=== PATIENT | male | born 1995 | race Two or more races ===

== ENCOUNTER 2025-03-07 19:27 | Emergency (ER) | payer BC, MEDICAID ==
[~2025-03-07] VITALS: Ht 175.3 cm; Wt 66.7 kg
[2025-03-07 19:35] VITALS: BP 127/83; PULSE 93; RESP 20; TEMP 98.7; O2SAT 96
--- NOTE | 2025-03-07 19:53 | ED.PDOC ---
Back pain HPI HPI Comments PT GOT HIS RIGHT INDEX AND MIDDLE FINGERS CAUGHT IN THE FAN BELT OF A CAR. AVULSION NOTED TO INDEX AND MIDDLE FINGER. NAIL IS MISSING OFF OF BOTH. DENIES NUMBNESS WEAKNESS OR ANY OTHER INJURY. Chief Complaint: Upper Extremity Time Seen by MD: 19:29 Reviewed Notes: Nurses Notes, Medications, Allergies Allergies: Coded Allergies: Hydrocortisone (Verified Allergy, Unknown, 03/07/25) Home Meds Active Scripts Ibuprofen (Ibuprofen) 800 Mg Tab, 800 MG PO Q8HP PRN for 7 Days, #21 TAB Prov:SIOMARACARSON TERRAZAS 03/07/25 Amoxicillin & Pot Clavulanate (AUGMENTIN TABLET) 875 Mg Tb, 875 MG PO BID for 10 Days, #20 TAB Prov:CARSON STRINGER 03/07/25 Information Source: Patient Mode of Arrival: Ambulatory Past Medical History PAST MEDICAL HISTORY: Denies Surgical History: Denies all surgeries Family History Family History: Unknown Social History Smoker: Non-Smoker Alcohol: Denies ETOH Use Drugs: Denies Drug Use Constitutional: denies: chills, diaphoresis, fatigue, fever, malaise, sweats, weakness, others EENTM: denies: blurred vision, double vision, ear bleeding, ear discharge, ear drainage, ear pain, ear ringing, eye pain, eye redness, hearing loss, mouth pain, mouth swelling, nasal discharge, nose bleeding, nose congestion, nose pain, photophobia, tearing, throat pain, throat swelling, voice changes, others Respiratory: denies: cough, hemoptysis, orthopnea, SOB at rest, shortness of breath, SOB with excertion, stridor, wheezing, others Cardiovascular: denies: chest pain, dizzy spells, diaphoresis, Dyspnea on exertion, edema, irregular heart beat, left arm pain, lightheadedness, palpitations, PND, syncope, others Gastrointestinal: denies: abdomen distended, abdominal pain, blood streaked bowels, constipated, diarrhea, dysphagia, difficulty swallowing, hematemesis, melena, nausea, poor appetite, poor fluid intake, rectal bleeding, rectal pain, vomiting, others Genitourinary: denies: burning, dysuria, flank pain, frequency, hematuria, incontinence, penile discharge, penile sore, pain, testicle pain, testicle swelling, urgency, others Neurological: denies: dizziness, fainting, headache, left sided numbness, left sided weakness, numbness, paresthesia, pre-existing deficit, right sided numbness, right sided weakness, seizure, speech problems, tingling, tremors, weakness, others Musculoskeletal: denies: back pain, gout, joint pain, joint swelling, muscle pain, muscle stiffness, neck pain, others Integumetry: reports: laceration (THIRD FINGER DISTAL ASPECT AVULSION WITH MISSING NAIL BLEEDING CONTROLLED RIGHT 4TH DIGIT AVULSION ON LATERAL ASPECT DISTAL BLEEDING CONTROLLED); denies: bruises, change in color, change in hair/nails, dryness, lesions, lumps, rash, wounds, others Allergic/Immunocompromised: denies: Difficulty Healing, Frequent Infections, Hives, Itching, others Hematologic/Lymphatic: denies: anemia, blood clots, easy bleeding, easy bruising, swollen glands, others Endocrine: denies: excessive hunger, excessive sweating, excessive thirst, excessive urination, flushing, intolerance to cold, intolerance to heat, unexplained weight gain, unexplained weight loss, others Psychiatric: denies: anxiety, bipolar disorder, depression, hopeless, panic disorder, schizophrenia, sleepless, suicidal, others Physical Exam General Appearance: No Apparent Distress, Normal HEENT: Pharynx Normal Neck: Full Range of Motion, Non-Tender Respiratory: Lungs Clear, No Respiratory Distress, Normal Breath Sounds Cardiovascular: No Murmur, Normal Peripheral Pulses, Regular Rate/Rhythm Breast Exam: Deferred Gastrointestinal: No Organomegaly, Non Tender, No Pulsatile Mass, Normal Bowel Sounds, Soft Genitalia: Deferred Pelvic: Deferred Rectal: Deferred Extremities: Normal capillary refill, Normal inspection, Normal range of motion, Non-tender, No pedal edema Musculoskeletal : Apperance: Normal Neurologic: Alert, tray worker II-XII nml as Tested, No Motor Deficits, Normal Affect, Normal Mood, No Sensory Deficits Cerebellar Function: Normal Reflexes: Normal Skin: Dry, Lacerations (THIRD FINGER DISTAL ASPECT AVULSION WITH MISSING NAIL BLEEDING CONTROLLED RIGHT 4TH DIGIT AVULSION ON LATERAL ASPECT DISTAL BLEEDING CONTROLLED STRENGTH SENSORY MOTION INTACT), Normal Color, Warm Lymphatic: No Adenopathy Was a procedure done? Was a procedure done?: Yes Sedation Sedation?: No Informed consent obtained: Yes Laceration Repair : Location RIGHT HAND 3RD AND 4TH DIGIT Length 5 CM Anesthetic: Nothing Laceration Repair Prep: Saline, by Irrigation Laceration Repair Wound Comple: extensive undermining Laceration Repair: Non-adherent gauze (SURGIECELL) Informed consent obtained: Yes Risks, benefits, and alternati: Yes Notes SURGICEL UTILIZE NONSUTURABLE AVULSIONS WRAPPED WITH NONADHERENT GAUZE AND 4X4S WITH COBAN PRESSURE DRESSING BLEEDING CONTROLLED Back Pain Differential Dx Differential Diagnosis: Fracture, Musculoskeletal Pain X-Ray, Labs, Meds, VS Vital Signs Date Time Temp Pulse Resp B/P (MAP) Pulse Ox O2 Delivery O2 Flow Rate FiO2 03/07/25 19:35 98.7 93 20 127/83 (98) 96 98.7 03/07/25 19:35 98.7 93 20 127/83 (98) 96 98.7 03/07/25 19:35 Room Air Current Medications Medications (Trade) Dose Ordered Sig/Wu Route Start Time Stop Time Status Last Admin Acetaminophen/ Hydrocodone Bitart ([place] 10/325MG Tab) 1 tab ONCE ONCE PO 03/07/25 19:45 03/07/25 19:46 DC 03/07/25 19:54 Ondansetron HCl (Zofran Po) 4 mg ONCE ONCE PO 03/07/25 19:45 03/07/25 19:46 DC 03/07/25 19:54 Cefazolin Sodium (Ancef Intramuscular) 1 gm ONCE ONCE IM 03/07/25 21:15 03/07/25 21:16 DC 03/07/25 22:12 X-Ray, Labs, Meds, VS Comment SEE PROCEDURE NOTE. RIGHT HAND X-RAY: Nondisplaced comminuted fracture of the tuft of the 3rd distal phalanx. Mild soft tissue edema. There is no evidence of dislocation, blastic, or lytic lesions. No radiopaque foreign bodies. PATIENT GIVEN ANCEF 1 G IM. NORCO 10 MG P.O. BLEEDING CONTROLLED NONSUTURABLE AVULSIONS AND FRACTURE OF THE 3RD DISTAL PHALANX. SPLINT PLACED. SCRIPT AUGMENTIN PROPHYLACTICALLY. ADVISED TO TAKE MEDICATIONS PRESCRIBED SIDE EFFECTS DISCUSSED. PATIENT GIVEN COPY OF X-RAY RESULT. ADVISED PATIENT TO CALL [facility]ST [facility] IN THE MORNING ORTHO HAND SURGEON REFERRAL LIST GIVEN FOR MEDICAL GROUP. DISCUSSED ER RETURN PRECAUTIONS UNCONTROLLED BLEEDING OR SIGNS AND SYMPTOMS OF INFECTION PATIENT INDICATES UNDERSTANDING AGREES WITH DISCHARGE PLAN OF CARE. Time of 1ST Reevaluation: 19:52 Reevaluation 1ST: Unchanged Patient Education/Counseling: Diagnosis, Treatment, Prognosis, Need For Follow Up Family Education/Counseling: No Family Present Departure 1 Departure Time of Disposition: 21:44 Impression: Primary Impression: Fingertip avulsion Qualified Codes: S61.209A - Unspecified open wound of unspecified finger without damage to nail, initial encounter Additional Impressions: Avulsed fingernail Qualified Codes: S61.309A - Unspecified open wound of unspecified finger with damage to nail, initial encounter Avulsion, finger tip Qualified Codes: S61.209A - Unspecified open wound of unspecified finger without damage to nail, initial encounter Finger fracture, right Qualified Codes: S62.662B - Nondisplaced fracture of distal phalanx of right middle finger, initial encounter for open fracture Disposition: 01 HOME / SELF CARE / HOMELESS Condition: Stable e-Prescriptions Ibuprofen (Ibuprofen) 800 Mg Tab 800 MG PO Q8HP PRN for 7 Days, #21 TAB Prov: CARSON STRINGER 03/07/25 Amoxicillin & Pot Clavulanate (AUGMENTIN TABLET) 875 Mg Tb 875 MG PO BID for 10 Days, #20 TAB Prov: CARSON STRINGER 03/07/25 Discharged With: Self Critical Care Note Critical Care Time?: No Stability Stability form required: No CARSON STRINGER Mar 07, 2025 19:53
[2025-03-07] MEDS: HYDROcodone-ACET 10/325MG TAB PO ONE (19:54)
[2025-03-07] MEDS: ONDANSETRON ODT 4 MG TAB PO ONE (19:54)
--- NOTE | 2025-03-07 20:53 | DVH ---
EXAM: XY R HAND 3 VIEW XRAY CLINICAL HISTORY: RIGHT INDEX/MIDDLE DIGIT CRUSH INJURY COMPARISON: None TECHNIQUE: XY R HAND 3 VIEW XRAY Findings/Impression: 3 views of the right hand. Nondisplaced comminuted fracture of the tuft of the 3rd distal phalanx. Mild soft tissue edema. There is no evidence of dislocation, blastic, or lytic lesions. No radiopaque foreign bodies.
[2025-03-07] MEDS ORDERED: AUG875T PO (21:45)
[2025-03-07] MEDS ORDERED: IBUP-1456 PO (21:45)
[2025-03-07] MEDS: ceFAZolin IM 1GM/2.5ML STERILE WATER IM ONE ×2 (22:04→22:12)
[2025-03-07] MEDS: ceFAZolin 1GM VL IM ONE (22:12)
== END 2025-03-07 22:23 | disposition home or self-care (01) ==
LOC: ER 19:32
DX: S62.662A Nondisplaced fracture of distal phalanx of right middle finger, initial encounter for closed fracture (principal); S61.214A Laceration without foreign body of right ring finger without damage to nail, initial encounter; Z79.899 Other long term (current) drug therapy; Z88.8 Allergy status to other drugs, medicaments and biological substances; W23.0XXA Caught, crushed, jammed, or pinched between moving objects, initial encounter; Y93.89 Activity, other specified; Y92.89 Other specified places as the place of occurrence of the external cause; Y99.8 Other external cause status
CPT/HCPCS: 29130; 73130; 96372; 99283; J0690; Q0162